=== PATIENT | female | born 1950 | race Caucasian/White ===

== ENCOUNTER 2016-11-29 09:30 | Day surgery (SDC) | payer OTHER ==
[~2016-11-29] VITALS: Ht 162.6 cm; Wt 89.0 kg
[~2016-11-29 09:30] MED LIST: 0.9% Sodium Chloride 1,000 ML IV PRN; ALBU8.5H2 INHALATION; CETI-343 PO; ESOM20CA28 PO; LEVO100T6 PO; LISI10TA PO; MECL-114 PO; ONDA4TAB6 PO; OXYB15TA PO; POTA99TA3 PO; PROP10TA8 PO; SERT50TA9 PO; Sodium Chloride LOK Flush 10 mL Syringe IV PRN; TOLT2TAB5 PO; TRIA1CAP5 PO; digestive enzymes; fentaNYL-PF 50 mCg/mL 2 mL Inj IVPUSH PRN
[2016-11-29 10:01] VITALS: BP 122/65; PULSE 69; RESP 14; O2SAT 100
[2016-11-29] MEDS ORDERED: 0.9% Sodium Chloride 1,000 ML IV ONE (11:23)
[2016-11-29 12:16] VITALS: BP 131/76; PULSE 75; RESP 16; O2SAT 96
[2016-11-29 12:38] VITALS: BP 89/66; PULSE 87; RESP 16; O2SAT 98
[2016-11-29 12:40] VITALS: BP 93/83; PULSE 72; RESP 16; O2SAT 100
[2016-11-29 12:48] VITALS: BP 123/69; PULSE 70; RESP 16; O2SAT 99
--- NOTE | 2016-11-29 16:58 | ENDO ---
[address] [address] ENDOSCOPY PROCEDURE PATIENT: BERNICE PATE : 1950 MR#: [id number] ADMIT: 11/29/2016 JOB ID: [id number] PRIMARY PROVIDER: Lambert Dickinson PA-C PROCEDURE: Esophagogastroduodenoscopy and a colonoscopy. INDICATIONS: A 66-year-old female with longstanding reflux who reports for Dur[facility]'s screening. Last colonoscopy was 2005 and she therefore presents for average risk colon cancer screening as well. EQUIPMENT: GIF-H180J and a PCF-H180AL. SEDATION: 8 mg Versed, 175 mcg fentanyl. COMPLICATIONS: None identified. BOWEL PREPARATION: Fair, adequate exam. PROCEDURE INFORMATION: After the risks and benefits were explained, written and verbal informed consent was obtained, the patient was brought into the endoscopy suite and placed into the left lateral decubitus position. Sedation was achieved as above. The scope introduced into the mouth through the bite block, and advanced to the second portion of the duodenum. The scope was slowly withdrawn to carefully examine the mucosa for any defects or lesions. Retroflexed views were accomplished in the stomach. The stomach was decompressed, the scope removed from the patient who tolerated the procedure well. The patient was then turned around. A digital rectal examination accomplished. Mild internal/ external nonbleeding, nonthrombosed hemorrhoids were noted. The scope was introduced into the rectum and advanced under direct visualization to the level of the cecum, as identified by the appendiceal orifice and ileocecal valve. The scope was slowly withdrawn to carefully examine the mucosa for any defects or lesions. Multiple direct views were made through the dentate line for exclusion of pathology. The colon was decompressed, the scope removed from the patient who tolerated the procedure well. FINDINGS: 1. Duodenum: This appeared visually unremarkable from the bulb through to the second portion. 2. Stomach: No outlet obstruction. No ulcers. No mass lesions. No significant gastric pathology appreciated throughout. Subtle sliding hiatal hernia noted on retroflexed views. 3. Esophagus: The squamocolumnar junction correlated with the top of the gastric folds. The GEJ was at 38 cm from the incisors. No acute erosive changes. No strictures. No mass lesions. 4. Colon: No significant polyps, mass lesions, or inflammatory features identified throughout. The patient had a redundant challenging navigation. There was some mild scope trauma in through the rectosigmoid region characterized by some submucosal ecchymotic changes seen on withdrawal. There was no hemorrhagic complication and there did not appear to be any actual breech in the mucosa. ENDOSCOPIC DIAGNOSES: 1. Subtle sliding hiatal hernia. 2. Otherwise visually unremarkable esophagogastroduodenoscopy. 3. Mild hemorrhoids. RECOMMENDATIONS: 1. Continue antireflux regimen. 2. Consider colon cancer screening with colonoscopy in 10 years' time. Based on the redundancy of the bowel it may be prudent to do that exam with double balloon technology. Surveillance esophagogastroduodenoscopy is not anticipated.
== END 2016-11-29 23:59 | disposition home or self-care (01) ==
LOC: END 09:30
PROVIDERS: ATTEND Internal Medicine Gastroenterology
DX: Z12.11 Encounter for screening for malignant neoplasm of colon (principal); K64.8 Other hemorrhoids; K64.9 Unspecified hemorrhoids; K44.9 Diaphragmatic hernia without obstruction or gangrene; K21.9 Gastro-esophageal reflux disease without esophagitis; I10 Essential (primary) hypertension; F34.1 Dysthymic disorder; E03.9 Hypothyroidism, unspecified; H81.13 Benign paroxysmal vertigo, bilateral; Z79.890 Hormone replacement therapy
CPT/HCPCS: 43235; 99153; G0121; G0500; J7030